=== PATIENT | male | born 1940 | race Caucasian/White ===

== ENCOUNTER → 2017-07-03 | Outpatient (CLI) | payer OTHER | LOC: OIH 14:27 | PROVIDERS: ATTEND Family Medicine | DX: D47.1 Chronic myeloproliferative disease (principal); R53.83 Other fatigue | CPT/HCPCS: 71046 ==

== ENCOUNTER → 2017-07-17 | Outpatient (CLI) | payer OTHER ==
[~2017-07-17] MED LIST: IOPAMIDOL-370 100 ML VIAL IV ONE
== END | disposition home or self-care (01) ==
LOC: RAH 08:47
PROVIDERS: ATTEND Family Medicine
DX: R10.9 Unspecified abdominal pain (principal)
CPT/HCPCS: 74178; Q9967

== ENCOUNTER → 2017-12-23 | Outpatient (CLI) | payer OTHER | LOC: RAH 07:36 | PROVIDERS: ATTEND Family Medicine | DX: I71.4 Abdominal aortic aneurysm, without rupture (principal); N28.9 Disorder of kidney and ureter, unspecified | CPT/HCPCS: 76770; 93975 ==

== ENCOUNTER → 2018-07-10 | Outpatient (CLI) | payer OTHER | END | disposition home or self-care (01) | LOC: RAH 12:46 | PROVIDERS: ATTEND Family Medicine | DX: I70.90 Unspecified atherosclerosis (principal); N18.3 Chronic kidney disease, stage 3 (moderate); I71.4 Abdominal aortic aneurysm, without rupture; I72.3 Aneurysm of iliac artery | CPT/HCPCS: 76770; 76775; 93975 ==

== ENCOUNTER 2018-07-21 05:27 | Day surgery (SDC) | payer OTHER ==
[~2018-07-21] VITALS: Ht 188 cm; Wt 89.4 kg
[~2018-07-21 05:27] MED LIST changes: +ALLO300T2 PO; +ASPI-555 PO; +ATOR40TA71 PO; +FLUT16H NASAL; +HYDR500C2 PO; +IMIP75CA PO; -IOPAMIDOL-370 100 ML VIAL IV ONE; +LEVO112T7 PO; +SERT100T12 PO; +ZOLP12.550 PO
[2018-07-21] MEDS ORDERED: SODIUM CHLORIDE 0.9% 1000ML 1,000 ML IV ONE (05:47)
[2018-07-21 06:07] VITALS: BP 114/66
[2018-07-21] MEDS ORDERED: PROPOFOL 10 MG/ML 20ML VIAL IV ONE (06:11)
[2018-07-21] MEDS ORDERED: LIDOCAINE HCL-MPF 2% 5ML VIAL ONE (06:28)
[2018-07-21] MEDS ORDERED: GLYCOPYRROLATE 0.2 MG/ML 5 ML VIAL ONE (06:29)
[2018-07-21 06:40] VITALS: BP 102/50
--- NOTE | 2018-07-21 06:40 | NUR ---
ASSESSMENT RECEIVED PT FROM GI STAFF AFTAB ROBIN. PT AWAKE. DENIES ANY PAIN. POOR PREP. PROCEDURE NOT PERFORMED. PT WILL RETURN TOMORROW FOR PROCEDURE. VERBALIZED UNDERSTANDING ALONG WITH PT.
[2018-07-21 06:45] VITALS: BP 128/75
[2018-07-21 06:49] VITALS: BP 134/78
[2018-07-21 06:55] VITALS: BP 130/77
[2018-07-21 07:00] VITALS: BP 129/85
== END 2018-07-21 07:05 | disposition home or self-care (01) ==
LOC: DAH 05:27 → ENDO 05:27
PROVIDERS: ATTEND Internal Medicine
DX: Z12.11 Encounter for screening for malignant neoplasm of colon (principal); K64.8 Other hemorrhoids; F41.9 Anxiety disorder, unspecified; F32.9 Major depressive disorder, single episode, unspecified; I12.9 Hypertensive chronic kidney disease with stage 1 through stage 4 chronic kidney disease, or unspecified chronic kidney disease; N18.9 Chronic kidney disease, unspecified; Z98.49 Cataract extraction status, unspecified eye; Z85.830 Personal history of malignant neoplasm of bone; Z79.899 Other long term (current) drug therapy; D47.1 Chronic myeloproliferative disease; E78.2 Mixed hyperlipidemia; Z83.71 Family history of colonic polyps; Z88.2 Allergy status to sulfonamides; J45.909 Unspecified asthma, uncomplicated; G47.30 Sleep apnea, unspecified
CPT/HCPCS: A4606; G0105; J2704; J3490 ×2; J7030; 45378

== ENCOUNTER 2018-07-22 06:50 | Day surgery (SDC) | payer OTHER ==
[2018-07-22] VITALS (7 sets, daily range): BP systolic 93–123; BP diastolic 46–82
[~2018-07-22] VITALS: Ht 190.5 cm; Wt 87.1 kg
[~2018-07-22 06:50] MED LIST changes: +SODIUM CHLORIDE 0.9% 1000ML 1,000 ML IV ONE
[2018-07-22] MEDS ORDERED: PROPOFOL 10 MG/ML 20ML VIAL IV ONE ×2 (08:06)
--- NOTE | 2018-07-22 08:40 | NUR ---
PATIENT COMPLAINING OF RIGHT EYE IRRITATION, SHAHNAZ ARMIJO CRNA NOTIFIED AND ORDERED ARTIFICIAL TEAR T X2 DROP TO RIGHT EYE.
[2018-07-22] MEDS ORDERED: ARTIFICIAL TEARS 3.5 GM OINTMENT OS SCH (09:00)
--- NOTE | 2018-07-22 09:14 | NUR ---
BOTH PATIENT AND AWARE OF POOR PREP COLON DIRTY, GIVEN OPTION BY DR. TAM TO RETURN TOMORROW TO ATTEMPT TO DO COLONOSCOPY , BOTH PATIEN AND AGREED AND PRE REGISTER TODAY. INSTRUCTIONS GIVEN TO BOTH ON PRE OP FOR TOMORROW, THEY VERBALIZED UNDERSTANDING.
[2018-07-22] MEDS ORDERED: ARTIFICAL TEARS SOL 15 ML OD SCH (09:15)
--- NOTE | 2018-07-22 09:32 | NUR ---
PER AND PATIENT THEY WILL PUT EYE LUBRICANT DROPS AT HOME THW
--- NOTE | 2018-07-22 09:33 | NUR ---
PER AND PATIENT WILL PUT EYE DROPS ORDERED AT HOME PER PATIENT HE HAS EYE DROPS AT HOME. STATES FEELING BETTER AND NOT IRRITATED TO RIGHT EYE
--- NOTE | 2018-07-22 10:05 | NUR ---
CALLED PATIENT AND TO ASK IF EYE DROPS HAD BEEN APPLIED AND ALSO TO COVER RIGHT EYE FOR TODAY ONLY TO RELIEVE DISCOMFORT PER SHAHNAZ ARMIJO CRNA. STATED SHE HAD APPLIED EYE DROP TO RIGHT EYE AND WOULD COVER IF NEEDED.
== END 2018-07-22 09:34 | disposition home or self-care (01) ==
LOC: ENDO 06:50 → DAH 06:50 → ENDO 09:34
PROVIDERS: ATTEND Internal Medicine
DX: Z12.11 Encounter for screening for malignant neoplasm of colon (principal); F41.9 Anxiety disorder, unspecified; F32.9 Major depressive disorder, single episode, unspecified; E03.9 Hypothyroidism, unspecified; M19.90 Unspecified osteoarthritis, unspecified site; E78.2 Mixed hyperlipidemia; D47.1 Chronic myeloproliferative disease; Z88.2 Allergy status to sulfonamides; Z79.899 Other long term (current) drug therapy; I12.9 Hypertensive chronic kidney disease with stage 1 through stage 4 chronic kidney disease, or unspecified chronic kidney disease; N18.9 Chronic kidney disease, unspecified; Z98.49 Cataract extraction status, unspecified eye; Z98.890 Other specified postprocedural states
CPT/HCPCS: 45378; A4606; J2704 ×2; J7030

== ENCOUNTER 2018-07-23 05:25 | Day surgery (SDC) | payer OTHER ==
[~2018-07-23] VITALS: Ht 188 cm; Wt 87.1 kg
[~2018-07-23 05:25] MED LIST changes: -SODIUM CHLORIDE 0.9% 1000ML 1,000 ML IV ONE
[2018-07-23] MEDS ORDERED: SODIUM CHLORIDE 0.9% 1000ML 1,000 ML IV ONE (05:41)
[2018-07-23 06:03] VITALS: BP 137/69
[2018-07-23] MEDS ORDERED: PROPOFOL 10 MG/ML 20ML VIAL IV ONE ×2 (07:08→07:30)
[2018-07-23 07:42] VITALS: BP 126/60
[2018-07-23 07:47] VITALS: BP 116/57
[2018-07-23 07:52] VITALS: BP 118/55
[2018-07-23 07:57] VITALS: BP 138/67
== END 2018-07-23 08:06 | disposition home or self-care (01) ==
LOC: ENDO 05:25 → DAH 05:25 → ENDO 08:06
PROVIDERS: ATTEND Internal Medicine
DX: Z12.11 Encounter for screening for malignant neoplasm of colon (principal); D12.0 Benign neoplasm of cecum; Z83.71 Family history of colonic polyps; E78.2 Mixed hyperlipidemia; Z98.49 Cataract extraction status, unspecified eye; Z98.890 Other specified postprocedural states; E78.5 Hyperlipidemia, unspecified; F41.9 Anxiety disorder, unspecified; F32.9 Major depressive disorder, single episode, unspecified; E03.9 Hypothyroidism, unspecified; M19.90 Unspecified osteoarthritis, unspecified site; Z79.899 Other long term (current) drug therapy; Z88.2 Allergy status to sulfonamides; Z85.830 Personal history of malignant neoplasm of bone; I12.9 Hypertensive chronic kidney disease with stage 1 through stage 4 chronic kidney disease, or unspecified chronic kidney disease; N18.9 Chronic kidney disease, unspecified; D47.1 Chronic myeloproliferative disease; I44.7 Left bundle-branch block, unspecified; K57.30 Diverticulosis of large intestine without perforation or abscess without bleeding
CPT/HCPCS: 45380; 93005; A4606; J2704 ×2; J7030

== ENCOUNTER → 2018-10-07 | Outpatient (CLI) | payer OTHER | END | disposition home or self-care (01) | LOC: RAH 13:11 | PROVIDERS: ATTEND Family Medicine | DX: I70.1 Atherosclerosis of renal artery (principal) | CPT/HCPCS: 74185 ==

== ENCOUNTER 2019-04-04 11:18 | Emergency (ER) | payer OTHER ==
[2019-04-04] MEDS ORDERED: KETOROLAC TROMETHAMINE 15MG/ML ONE (12:40)
[2019-04-04] MEDS ORDERED: DIAZEPAM 2 MG TAB ONE (12:41)
[2019-04-04] MEDS ORDERED: CYCLOBENZAPRINE HCL 10 MG TABLET ONE (12:41)
[2019-04-04] MEDS ORDERED: MORPHINE SULFATE 4 MG/1ML SYG ONE (15:00)
[2019-04-04] MEDS ORDERED: ONDANSETRON ODT 4 MG TAB ONE (16:00)
[2019-04-04] MEDS ORDERED: METHYLPREDNISOLONE SOD SUCC 125MG/2ML VIAL ONE ×2 (16:40→16:43)
[2019-04-04 17:09] LABS: APPEARANCE,URINE Clear (CLEAR); BILIRUBIN,URINE Negative (NEGATIVE); COLOR,URINE Yellow (YELLOW); GLUCOSE, URINE (UA) Negative (NEGATIVE); KETONES,URINE Negative (NEGATIVE); LEUKOCYTE ESTERASE ,URINE Negative (NEGATIVE); NITRATE,URINE Negative (NEGATIVE); OCCULT BLOOD,URINE Negative (NEGATIVE); PH,URINE 7.5 (5.0-8.0); PROTEIN,URINE Negative (NEGATIVE); UROBILINOGEN,URINE 0.2 mg/dL (0.2-1.0)
[2019-04-08] MEDS ORDERED: ATOR40TA71 PO (18:29)
[2019-04-08] MEDS ORDERED: ALLO300T2 PO (18:29)
[2019-04-08] MEDS ORDERED: TIZA4TAB5 PO (18:29)
[2019-04-08] MEDS ORDERED: LORA-868 PO (18:29)
[2019-04-08] MEDS ORDERED: FLUT15.845 NS (18:29)
[2019-04-08] MEDS ORDERED: SERT100T12 PO (18:29)
[2019-04-08] MEDS ORDERED: ZOLP12.550 PO (18:29)
[2019-04-08] MEDS ORDERED: EYEL1TOW2 TP (18:29)
[2019-04-08] MEDS ORDERED: IMIP75CA PO (18:29)
[2019-04-08] MEDS ORDERED: ACET1TAB25 PO (18:29)
[2019-04-08] MEDS ORDERED: HYDR-3421 PO (18:29)
[2019-04-08] MEDS ORDERED: LEVO100T12 PO (18:29)
[2019-04-08] MEDS ORDERED: PRED20TA3 PO (18:29)
[2019-04-08] MEDS ORDERED: TRIAM15CRM TP (18:29)
[2019-04-08] MEDS ORDERED: HYDR500C2 PO (20:25)
== END 2019-04-04 17:20 | disposition home or self-care (01) ==
LOC: EDH 11:18
DX: M48.061 Spinal stenosis, lumbar region without neurogenic claudication (principal); M54.9 Dorsalgia, unspecified; G47.30 Sleep apnea, unspecified; Z88.2 Allergy status to sulfonamides; Z79.899 Other long term (current) drug therapy; Z98.890 Other specified postprocedural states
CPT/HCPCS: 72070; 72128; 72131; 72220; 81003; 96372 ×3; 99284; J1885; J2270; J2930 ×2